=== PATIENT | female | born 1965 | race Caucasian/White ===

== ENCOUNTER 2019-04-26 04:57 | Inpatient (IN) | payer OTHER ==
[2019-04-25 07:31] VITALS: BMI 37.5
[2019-04-26] MEDS ORDERED: PHENAZOPYRIDINE HCL 100 MG TABLET (FP) ONE (06:43)
[2019-04-26] MEDS ORDERED: ceFAZolin SODIUM 1 GM VIAL ONE (06:43)
[2019-04-26] MEDS ORDERED: PHENAZOPYRIDINE HCL 100 MG TABLET (FP) PO ONE (07:00)
[2019-04-26] MEDS ORDERED: ROCURONIUM BROMIDE 50 MG/5 ML SYRINGE ONE (07:14)
[2019-04-26] MEDS ORDERED: fentaNYL CITRATE 250 MCG/5 ML VIAL ONE (07:14)
[2019-04-26] MEDS ORDERED: PROPOFOL 20 ML ONE (07:14)
[2019-04-26] MEDS ORDERED: MIDAZOLAM HCL 2 MG/2 ML SINGLE DOSE VIAL ONE ×3 (07:14→07:29)
[2019-04-26] MEDS ORDERED: VERAPAMIL HCL 5 MG/2 ML VIAL IVPUSH ONE (07:14)
[2019-04-26] MEDS ORDERED: DEXAMETHASONE SOD PHOSPHATE 4 MG/1 ML VIAL ONE (07:15)
[2019-04-26] MEDS ORDERED: LIDOCAINE HCL/PF 2% SDV 5ML VIAL ONE (07:15)
[2019-04-26] MEDS ORDERED: CEFAZOLIN 2 GM/D5W 2 GM/50 ML ML IVPB ONE (07:15)
[2019-04-26] MEDS ORDERED: BUPIVACAINE HCL/PF 0.5% (5 MG/ML) 30 ML VIAL IJ ONE (07:28)
[2019-04-26] MEDS ORDERED: DEXAMETHASONE SOD PHOSPHATE/PF 10 MG/ML SDV ONE (07:28)
--- NOTE | 2019-04-26 07:42 | HP ---
History & Physical Update - History History: No Change - Physical Physical: No Change - Assessment Assessment: No Change - Plan Plan: No Change (Full H&P in the paper chart from 04/12/[address] Case)
[2019-04-26] MEDS ORDERED: ceFAZolin 2 GRAM PREMIX BAG IVPB ONE (08:12)
[2019-04-26] MEDS ORDERED: ONDANSETRON 4 MG/2 ML VIAL IVPUSH PRN ×2 (08:31→09:51)
[2019-04-26] MEDS ORDERED: GLYCOPYRROLATE 0.2 MG/1 ML VIAL ONE (09:44)
[2019-04-26] MEDS ORDERED: KETOROLAC TROMETHAMINE 30 MG/1 ML VIAL ONE (09:44)
[2019-04-26] MEDS ORDERED: NEOSTIGMINE METHYLSULFATE 0.5 MG/ML - 10 ML MDV ONE (09:44)
[2019-04-26] MEDS ORDERED: IBUPROFEN 800 MG/8 ML IJ IVPB PRN (09:51)
[2019-04-26] MEDS ORDERED: BISACODYL 5 MG TABLET.DR (FP) PO PRN (09:51)
[2019-04-26] MEDS ORDERED: oxyCODONE HCL 5 MG TABLET PO PRN ×2 (09:51)
--- NOTE | 2019-04-26 09:58 | OP ---
Operative Note - Note: Operative Date: 04/26/19 Pre-Operative Diagnosis: Fibroid uterus Operation: Abdominal total hysterectomy and bilateral salpingectomy. Post-Operative Diagnosis: Same as Pre-op Surgeon: Sita Ellington Floorworker: Lino Roque Anesthesiologist/RADIOLOGY SUPERVISOR: Hai Martins Anesthesia: General Estimated Blood Loss (mls): 200 Operative Report Dictated: Yes
--- NOTE | 2019-04-26 09:59 | SURG ---
Surgery Removable Prosthodontist Note Removable Prosthodontist: Lino Roque PA-C Date of Service: 04/26/19 Diagnosis: fibroid uterus Procedure: abdominal total hysterectomy and bilateral salpingectomy I was present for the entirety of the operative procedure. For further detail, please refer to operative report. Visit type - Case Type Case Type: Scheduled - Emergency Emergency Visit: No - New patient This patient is new to me today: Yes Date on this admission: 04/26/19 - Critical Care Critical Care patient: No
[2019-04-26] MEDS ORDERED: CEFAZOLIN 1 GM/D5W 1 GM/50 ML BAG IVPB SCH (10:00)
[2019-04-26] MEDS ORDERED: ACETAMINOPHEN 1000 MG/100 ML VIAL (NON FORMULARY) IVPB ONE (10:30)
[2019-04-26] MEDS: LACTATED RINGERS SOLUTION 1,000 ML IV SCH ×3 (11:29→21:35)
[2019-04-26] MEDS: CEFAZOLIN 1 GM/D5W 1 GM/50 ML BAG IVPB SCH ×2 (16:00→18:50)
[2019-04-26] MEDS: amLODIPine BESYLATE 5 MG TABLET (FP) PO SCH (19:35)
[2019-04-26 19:59] LABS: HEMATOCRIT 38.6 % (32.4-45.2); HEMOGLOBIN 12.7 GM/dL (10.7-15.3); MCH 29.2 pg (25.7-33.7); MCHC 32.9 g/dl (32.0-36.0); MEAN CELL VOLUME 88.9 fl (80-96); MEAN PLT VOLUME 8.5 fl (7.5-11.1); PLATELET COUNT 370 K/MM3 (134-434); RBC 4.34 M/mm3 (3.60-5.2); RDW 14.7 % (11.6-15.6)
[2019-04-26 20:29] LABS: BLOOD UREA NITROGEN 6.3 mg/dL (7-18); CALCIUM 8.7 mg/dL (8.5-10.1); CREATININE 0.7 mg/dL (0.55-1.3); POTASSIUM 3.8 mmol/L (3.5-5.1)
[2019-04-27] MEDS: CEFAZOLIN 1 GM/D5W 1 GM/50 ML BAG IVPB SCH (00:32)
--- NOTE | 2019-04-27 08:37 | PN ---
Progress Note (short form) - Note Progress Note: 54yo F s/p ALEJANDRO POD 1. Pt seen and examined at bedside. Pt states abd pain is controlled. Denies fever, chills, n/v. Pt tolerating liquids. Last Vital Signs Temp Pulse Resp BP Pulse Ox 98.5 F 95 H 18 134/72 99 04/27/19 06:00 04/27/19 06:00 04/27/19 06:00 04/27/19 06:00 04/26/19 12:30 CBC, BMP 04/26/19 19:00 04/26/19 19:00 PE: Gen: A&O X3 Resp: breathing comfortably Abd: incision clean with no erythema or drainage, soft, nondistended, mild lower abd tenderness Ext: no edema Problem List - Problems (1) Status post hysterectomy Assessment/Plan: Plan -d/c santana, void check -OOB/ambulate -adv diet as tolerated -DVT ppx -pain control Plan for discharge tomorrow. Code(s): Z90.710 - ACQUIRED ABSENCE OF BOTH CERVIX AND UTERUS
[2019-04-27 08:49] LABS: HEMATOCRIT 34.5 % (32.4-45.2); HEMOGLOBIN 11.4 GM/dL (10.7-15.3); MCH 29.2 pg (25.7-33.7); MEAN CELL VOLUME 88.5 fl (80-96); MEAN PLT VOLUME 8.1 fl (7.5-11.1); PLATELET COUNT 347 K/MM3 (134-434); RDW 14.3 % (11.6-15.6); WHITE BLOOD COUNT 16.8 K/mm3 (4.0-10.0)
[2019-04-27 09:13] LABS: BLOOD UREA NITROGEN 8.1 mg/dL (7-18); CALCIUM 8.6 mg/dL (8.5-10.1); CREATININE 0.7 mg/dL (0.55-1.3); POTASSIUM 3.7 mmol/L (3.5-5.1)
[2019-04-27] MEDS: ENOXAPARIN NA (PORCINE) 40 MG/0.4 ML DISP.SYRIN SQ SCH (09:48)
[2019-04-27] MEDS: amLODIPine BESYLATE 5 MG TABLET (FP) PO SCH (10:44)
[2019-04-27] MEDS: SIMETHICONE 80 MG TAB.CHEW (FP) PO PRN (20:01)
[2019-04-27] MEDS: DOCUSATE SODIUM 100 MG CAPSULE (FP) PO PRN (20:01)
[2019-04-27] MEDS: ACETAMINOPHEN 325 MG TABLET (FP) PO PRN (20:01)
[2019-04-28 06:17] VITALS: PULSE 90
--- NOTE | 2019-04-28 07:23 | DS ---
Physical Examination Vital Signs: Vital Signs Temperature 98.3 F 04/28/19 04:00 Pulse Rate 90 04/28/19 04:00 Respiratory Rate 20 04/28/19 04:00 Blood Pressure 142/81 04/28/19 04:00 O2 Sat by Pulse Oximetry (%) 96 04/27/19 20:40 Constitutional: No: No Distress Eyes: Yes: Conjunctiva Clear HENT: Yes: Atraumatic Neck: Yes: Supple Cardiovascular: Yes: Regular Rate and Rhythm Respiratory: Yes: Regular Gastrointestinal: Yes: Normal Bowel Sounds Breast(s): Yes: WNL Musculoskeletal: Yes: WNL Extremities: No: Calf Tenderness Wound/Incision: Yes: Well Approximated, Steri Strips (in place) Neurological: Yes: Alert, Oriented ...Motor Strength: WNL Psychiatric: Yes: Alert, Oriented Labs: CBC, BMP 04/27/19 07:50 04/27/19 07:50 Discharge Summary Problems reviewed: Yes Reason For Visit: TOTAL ABD HYSTERECTOMY Current Active Problems Status post hysterectomy (Acute) Procedures: Principal: ALEAJNDRO / BSO Hospital Course: Uneventful post op. No blood transfusion nor additional dosage of antibiotic required. Health Concerns: Venous thromboembolism Plan of Treatment: Ambulation recommended Analgesia Goals: Resume regular activities in 3 to 4 weeks F/U with MD in 2 weeks Condition: Stable - Instructions Diet, Activity, Other Instructions: Dr. Sita Ellington Magnetic Prospector discharge instructions Physical activity Resume your normal everyday activity as tolerated no heavy lifting or exercise until seen by your surgeon. You may walk unlimited chirag of and climb stairs. You may resume driving the car when you feel safe and comfortable behind the wheel. No sexual activity as instructed by Dr. Ellington. Wound care If you have a bandage, leave it on, and keep dry for 48-72 hours. After that time discard the outer bandage. If they are tapes on the skin under the out of bandage leave them in place. They will peel off in the next 7 to 10 days. Do Not Peel them off. You may shower the day after surgery. If there are tapes present on the skin, you may shower over them. Diet There are no dietary restrictions. Eat healthy, high-fiber foods. Drink 6 to 8 glasses of liquid each day. This will assist in keeping your bowels are regular. Pain management You may take Tylenol or acetaminophen or Ibuprofen (for example, Motrin, Advil etc.) from my pain prescription medication is ordered should be taken as prescribed for moderate to severe pain. Call Dr. Ellington for any of the following: Severe pain not relieved by medication Fever of 101 or higher Excessive bleeding or drainage on dressing Inability to urinate ISTOP: [phone] Call the office at [phone] for an appointment in seven days. Disposition: HOME - Home Medications Comprehensive Discharge Medication List: Ambulatory Orders Amlodipine Besylate [Norvasc -] 5 mg PO DAILY 04/25/19 Docusate Sodium [Colace] 100 mg PO BID #30 capsule 04/27/19 oxyCODONE HCL [Roxicodone -] 5 mg PO Q4H PRN #20 tablet MDD 6 04/27/19
[2019-04-28 07:51] VITALS: BP 140/86; TEMP 97.8
[2019-04-28] MEDS: ACETAMINOPHEN 325 MG TABLET (FP) PO PRN (10:15)
[2019-04-28] MEDS: amLODIPine BESYLATE 5 MG TABLET (FP) PO SCH (10:15)
[2019-04-28] MEDS: SIMETHICONE 80 MG TAB.CHEW (FP) PO PRN (10:15)
[2019-04-28] MEDS: DOCUSATE SODIUM 100 MG CAPSULE (FP) PO PRN (10:17)
[2019-04-28] MEDS: ENOXAPARIN NA (PORCINE) 40 MG/0.4 ML DISP.SYRIN SQ SCH (10:20)
--- NOTE | 2019-05-02 13:19 | PATH ---
Surgical Pathology Report Patient Name: CHANA KAN [facility]. Rec. #: [id number] /Age/Gender: 1965 (Age: 54) / F Account: [id number] Location: [facility] OBS/LEAD SOFTWARE ENGINEER Taken: 04/26/2019 Received: 04/26/2019 Reported: 05/02/2019 Physicians: Sita Ellington M.D. Specimen(s) Received A: UTERUS AND CERVIX B: RIGHT FALLOPIAN TUBE C: LEFT FALLOPIAN TUBE Clinical History Uterine fibroids Final Diagnosis A. UTERUS AND CERVIX, TOTAL ABDOMINAL HYSTERECTOMY: 401 G UTERUS. LEIOMYOMA(TA), INTRAMURAL. PROLIFERATIVE ENDOMETRIUM. CERVIX WITHOUT SIGNIFICANT PATHOLOGIC FINDINGS. B. FALLOPIAN TUBE, RIGHT, EXCISION: FALLOPIAN TUBE WITH WALTHARD NEST CYSTS (INCLUDING FIMBRIATED END AND FULL LUMINAL PORTION). C. FALLOPIAN TUBE, LEFT, EXCISION: FALLOPIAN TUBE WITH PARATUBAL CYST AND FOCAL ENDOMETRIOSIS (INCLUDING FULL LUMINAL PORTION). SEE COMMENT. Comment: Part C, Immunohistochemical stain performed at [place], [place] ([id number]) and interpreted at [facility] show CD10 highlights endometrial stroma consistent with endometriosis. Positive and negative controls (internal if applicable) show appropriate results. Electronically Signed Flaca Bishop M.D. Gross Description A. Received in formalin labeled "uterus and cervix," is a 401 g supracervically amputated uterus with no attached adnexa. The cervix is separately received within the same container. The uterus measures 11 cm from superior to inferior, 9 cm from left to right and 7.5 cm from anterior to posterior. The serosa is sandoval-garrison and smooth. The endometrial cavity measures 6 cm in length and 2.3 cm from cornu to cornu. The endometrium is sandoval-red and measures 0.1 cm in thickness. The myometrium displays abundant intramural nodules, measuring up to 4.5 cm in greatest dimension. The cut surface of the nodules is sandoval and rubbery with whorled architecture. No areas of hemorrhage or necrosis are identified. The remaining myometrium is sandoval-pink and focally measures up to 4.4 cm in thickness. The separately received, unoriented cervix measures 4.3 cm in length and averages 3 cm in diameter. The ectocervix is sandoval, smooth and glistening. The endocervix is sandoval-brown and unremarkable. Aircraft Landing Gear Inspector sections are submitted in 10 cassettes as follows: 8-8-wadmxwwg endomyometrium; 9-6-zurhcfqat endomyometrium; 5-6-cervix; 7-8-largest intramural nodule; 3-95-jgjsgixhid intramural nodules. B. Received in formalin labeled "right fallopian tube," is a 3.3 cm in length fimbriated fallopian tube. The outer surface is garrison purple and smooth. Sectioning reveals an unremarkable lumen. Aircraft Landing Gear Inspector sections are submitted in 2 cassettes as follows: 1-fimbria; 2-cross sections of fallopian tube. C. Received in formalin labeled "left fallopian tube," is a 2.8 cm in length portion of fallopian tube. No fimbria are present. The outer surface is garrison purple and smooth. Sectioning reveals an unremarkable lumen. Separately received within the same container is a 1.2 cm in greatest dimension intact cyst. The outer surface is sandoval and smooth. The cyst lumen contains clear serous fluid and the inner lining is smooth. Aircraft Landing Gear Inspector sections are submitted in 2 cassettes as follows: 1-cross sections of fallopian tubes; 2-cyst. 04/27/2019 [facility]04/27/2019
--- NOTE | 2019-05-03 14:53 | OP ---
DATE OF OPERATION: 04/26/2019 PREOPERATIVE DIAGNOSIS: Fibroid uterus. OPERATION: Abdominal total hysterectomy and bilateral salpingectomy. POSTOPERATIVE DIAGNOSIS: Fibroid uterus. SURGEON: Sita Ellington MD LOOP DRIER OPERATOR: Lino Roque PA-C ANESTHESIOLOGIST: GERONIMO Fox ANESTHESIA: General. ESTIMATED BLOOD LOSS: 200 mL. PROCEDURE: Patient was taken to the operating room and placed in supine position, prepped and draped in the usual sterile fashion after Castillo catheter was inserted into the bladder. Pfannenstiel skin incision was made with a scalpel. Cautery was then used to go through the layers of abdominal wall to the fascia. Fascia was cut in the midline, and cautery was then used to open the fascia in smiling fashion. Kochers were used to bluntly and sharply dissect the rectus muscle off the fascia. Muscle was split in the midline. Peritoneal cavity was then entered and carried upward and downward. A leiomyomatous uterus was then exteriorized. Approximately 13-14 cm in size. The abdomen was then packed with bowel packing. Utero-ovarian ligaments were clamped and cut using LigaSure. Uterine arteries were identified and clamped and cut down to the level of the cervix. The vesicouterine reflection was then entered. Bladder was bluntly dissected out of the operative field. Same procedure was repeated on the right side. Utero-ovarian ligament was identified, clamped, and cut. Round ligaments identified and clamped and cut. Uterine artery and cardinal ligaments were identified, clamped, and cut down to the level of the cervix. Bladder was bluntly dissected out of the operative field. A scalpel was then used to make an incision in the vagina. Endo Laura were then used to cut the vagina away from the cervix. Specimen was submitted to pathology. Both the uterus and cervix were then removed. Attention was then drawn to the [place] where a bilateral salpingectomy was done using LigaSure. Hemostasis was achieved. Ovaries were noted to be normal. Irrigation done. The vagina was then closed using V-Loc suture with V-Locs in a continuous fashion. Hemostasis was achieved. All packing was removed. Abdominal sweep was then done. Peritoneal cavity was then closed using an 0-Vicryl suture. Fascia was then closed using 0-Vicryl suture in 2 parts. Skin was then closed using 3-0 Vicryl in subcuticular fashion. Wound was washed and dressed. Patient tolerated the procedure well. Estimated blood loss was 200 mL. Shoaib [id number]
== END 2019-04-28 10:40 | disposition home or self-care (01) | DRG 743 ==
LOC: JSAMEDAYSX 04:57 → J3W 12:15
PROVIDERS: ADMIT Obstetrics & Gynecology; ATTEND Obstetrics & Gynecology
PROC: 0UT70ZZ Resection of Bilateral Fallopian Tubes, Open Approach (ICD-10-PCS; 2019-04-26)
PROC: 0UT90ZZ Resection of Uterus, Open Approach (ICD-10-PCS; principal; 2019-04-26 08:00)
DX: D25.9 Leiomyoma of uterus, unspecified (principal)
CPT/HCPCS: 36415; 80048; 85027; 86850; 86900; 86901; 88302-TC; 88307-TC; 94010; 94760